=== PATIENT | male | born 1950 | race Caucasian/White ===

== ENCOUNTER 2016-10-04 07:38 | Emergency (ER) | payer BC, OTHER ==
[2016-10-04] MEDS: SODIUM CHLORIDE 0.9% FLUSH 10 ML SOL IV PRN ×3 (07:45→08:00)
[2016-10-04] MEDS ORDERED: ADENOSINE 3 MG/ML SOL IV ONE ×2 (07:46→07:47)
[2016-10-04] MEDS ORDERED: SODIUM CHLORIDE 0.9% 1000ML 1,000 ML IV ONE (07:55)
[2016-10-04] MEDS ORDERED: ADENOSINE 3 MG/ML SOL IV PRN (07:55)
[2016-10-04] MEDS ORDERED: METOPROLOL TARTRATE 5 MG/5 ML SOL IV ONE ×2 (07:57→08:00)
[2016-10-04] MEDS ORDERED: ASPIRIN 81 MG CHEWABLE CTB PO STA (07:59)
[2016-10-04] MEDS ORDERED: NITROGLYCERIN 0.4 MG TAB SL PRN (07:59)
[2016-10-04 08:06] LABS: BASOPHILS % (AUTO) 1 % (0-3); EOSINOPHILS % (AUTO) 1 % (0-9); HEMATOCRIT 44 % (39-53); MEAN CORPUSCULAR HGB CONC 34.6 gm/dl (32.0-36.0); MEAN CORPUSCULAR VOLUME 86 fL (80-100); MONOCYTES % (AUTO) 9.4 % (0-12); NEUTROPHILS % (AUTO) 72.8 % (37-80)
[2016-10-04 08:23] LABS: CALCIUM 8.4 mg/dl (8.5-10.1); GLOM FILT RATE 69 mL/min (>60); POTASSIUM 4.2 mMol/L (3.5-5.1); SODIUM 137 mMol/L (136-145)
[2016-10-04 08:27] VITALS: TEMP 96.9
[2016-10-04 15:18] VITALS: RESP 14
[2016-10-04 15:19] VITALS: BP 107/71; PULSE 21; O2SAT 100
== END 2016-10-04 11:46 | disposition home or self-care (01) | DRG 313 ==
LOC: ED 07:38
DX: R07.9 Chest pain, unspecified (principal); I95.9 Hypotension, unspecified; I47.1 Supraventricular tachycardia; Z82.49 Family history of ischemic heart disease and other diseases of the circulatory system; Z87.891 Personal history of nicotine dependence
CPT/HCPCS: 36415; 71010; 80048; 82550; 84484; 85025; 85610; 85730; 93005; 96365; 96374; 96375; 99285; J0153

== ENCOUNTER 2017-03-17 09:45 | Emergency (ER) | payer OTHER ==
[2017-03-17 10:13] VITALS: TEMP 97.8
[2017-03-17 10:30] LABS: BASOPHILS % (AUTO) 1 % (0-3); EOSINOPHILS % (AUTO) 2 % (0-9); HEMATOCRIT 44 % (39-53); MEAN CORPUSCULAR HGB CONC 33.7 gm/dl (32.0-36.0); MEAN CORPUSCULAR VOLUME 89 fL (80-100); MONOCYTES % (AUTO) 12.2 % (0-12); NEUTROPHILS % (AUTO) 70.8 % (37-80)
[2017-03-17 10:46] LABS: ALBUMIN 3.7 gm/dl (3.4-5.0); ALT 25 IU/L (14-63); CALCIUM 9.1 mg/dl (8.5-10.1); GLOM FILT RATE 66 mL/min (>60); SODIUM 139 mMol/L (136-145)
[2017-03-17] MEDS ORDERED: LIDOCAINE HCL 2% (VISCOUS) 20 ML SOL MT ONE (10:56)
[2017-03-17] MEDS ORDERED: ALUMINUM/MAGNESIUM 30 ML SUS PO ONE (10:56)
[2017-03-17] MEDS ORDERED: LIDOCAINE HCL 2% (VISCOUS) 20 ML SOL ONE (10:57)
[2017-03-17] MEDS ORDERED: ALUMINUM/MAGNESIUM 30 ML SUS ONE (10:57)
[2017-03-17 11:12] VITALS: RESP 20
[2017-03-17 11:17] VITALS: BP 147/65; PULSE 51; O2SAT 97
== END 2017-03-17 11:42 | disposition home or self-care (01) | DRG 392 ==
LOC: ED 09:45
DX: K21.9 Gastro-esophageal reflux disease without esophagitis (principal)
CPT/HCPCS: 36415; 71010; 80053; 84484; 85025; 99284